=== PATIENT | female | born 1960 | race Asian ===

== ENCOUNTER → 2019-10-16 | Outpatient (CLI) | payer BC | LOC: MC.RAD 09-10 08:00 | DX: Z12.31 Encounter for screening mammogram for malignant neoplasm of breast (principal) ==

== ENCOUNTER → 2020-10-18 | Outpatient (CLI) | payer BC | LOC: MC.RAD | DX: Z12.31 Encounter for screening mammogram for malignant neoplasm of breast (principal) ==